=== PATIENT | female | born 1980 | race Caucasian/White ===

== ENCOUNTER 2021-09-16 09:18 | Emergency (ER) | payer BC ==
[~2021-09-16] VITALS: Ht 157.5 cm; Wt 53.5 kg
[2021-09-16 09:24] VITALS: BP 150/111
--- NOTE | 2021-09-16 09:29 | NUR ---
PATIENT AMBULATED TO [facility].
--- NOTE | 2021-09-16 09:38 | NUR ---
Patient being evaluated by DR SMITH at [facility].
[2021-09-16] MEDS ORDERED: NAPR-1704 PO (10:14)
[2021-09-16 10:40] VITALS: BP 150/111
--- NOTE | 2021-09-16 10:40 | NUR ---
No nursing interventions implemented. Patient discharged with v/s stable. Written and verbal after care instructions given and explained. Patient alert, oriented and verbalized understanding of instructions. Ambulatory with steady gait. All questions addressed prior to discharge. ID band removed. Patient advised to follow up with PMD. Rx of NAPROXEN given. Patient educated on indication of medication including possible reaction and side effects. Opportunity to ask questions provided and answered.
== END 2021-09-16 10:40 | disposition home or self-care (01) ==
LOC: MED 09:18
DX: S00.33XA Contusion of nose, initial encounter (principal); Z88.0 Allergy status to penicillin; V98.8XXA Other specified transport accidents, initial encounter; Y93.89 Activity, other specified; Y92.89 Other specified places as the place of occurrence of the external cause; Y99.8 Other external cause status
CPT/HCPCS: 70160; 99283